=== PATIENT | female | born 1945 | race Caucasian/White ===

== ENCOUNTER 2017-08-28 15:42 | Inpatient (IN) | payer BC, OTHER ==
[~2017-08-28] VITALS: Ht 162.6 cm; Wt 59.0 kg
--- NOTE | 2017-08-28 16:19 | NUR ---
Pt refused xray, dr mariano aware.
--- NOTE | 2017-08-28 16:45 | NUR ---
Pt not candidate for MRSA, belonging list completed.
--- NOTE | 2017-08-28 17:03 | NUR ---
SPOKE WITH DR STAHL, NOTIFIED OF ADMISSION. STATES WILL RECONCILE MEDS LATER.
[2017-08-28] MEDS ORDERED: ACETAMINOPHEN 325 MG TABLET PO PRN (17:15)
[2017-08-28] MEDS ORDERED: MAG HYDROX/AL HYDROX/SIMETH 30 ML LIQUID UDC PO PRN (17:15)
[2017-08-28] MEDS ORDERED: MAGNESIUM HYDROXIDE 30 ML LIQUID UDC PO PRN (17:15)
[2017-08-28 18:26] VITALS: BP 134/90
--- NOTE | 2017-08-28 18:51 | NUR ---
1700 ADMIT TO [facility] A 72 YR. OLD FEMALE FROM , PLACED ON 5150 FOR DANGER TO SELF . PATIENT STATED SI AND BEEN DEPRESSED OVER 6 MONS. DUE TO THE OF HER TWIN SISTER . PATIENT IA ANGRY TO BE ADMITTED HER IN U. DR. MONROY AND DR. ALFARO NOTIFIED OF THE ADMIOSSION.
[2017-08-28 20:00] VITALS: BP 163/103
[2017-08-29] MEDS: LORAZEPAM 1 MG TABLET PO PRN ×2 (03:08→20:55)
[2017-08-29 07:30] VITALS: BP 145/89
[2017-08-29 07:39] LABS: BASOPHILS % (AUTO) 0.7 % (0.0-2.0); EOSINOPHILS # (AUTO) 0.1 K/uL (0.0-0.7); HEMATOCRIT 46.5 % (37-47); LYMPHOCYTES # (AUTO) 1.7 K/UL (0.8-4.8); MEAN CORPUSCULAR HEMOGLOBIN 36.8 UUG (27.0-31.0); MEAN CORPUSCULAR HGB CONC 34 g/dL (32.0-37.0); MEAN CORPUSCULAR VOLUME 107.3 FL (81.0-99.0); MONOCYTES # (AUTO) 0.6 K/UL (0.1-1.30); MONOCYTES % (AUTO) 11.2 % (0.0-11.0); NEUTROPHILS # (AUTO) 3.3 K/UL (1.8-8.9); NEUTROPHILS % (AUTO) 58.1 % (38.5-71.5); PLATELET COUNT (AUTO) 181 K/UL (150-450); RED BLOOD CELL COUNT(AUTO) 4.33 MIL/UL (4.2-5.4); WHITE BLOOD COUNT (AUTO) 5.7 K/UL (4.0-11.2)
[2017-08-29 07:56] LABS: THYROID STIMULATING HORMONE 6.585 mIU/mL (0.358-3.740)
[2017-08-29 08:13] LABS: ALANINE AMINOTRANSFERASE 48 U/L (14-59); ALKALINE PHOSPHATASE 73 U/L (50-136); ASPARTATE AMINOTRANSFERASE 64 U/L (15-37); BILIRUBIN,TOTAL 1.4 mg/dL (0.2-1.0); CARBON DIOXIDE 33 mmol/L (21-32); CHLORIDE 99 mmol/L (98-107); CHOLESTEROL 282 mg/dL (<200); CREATININE 0.7 mg/dL (0.6-1.3); GLUCOSE 101 mg/dL (74-106); HDL CHOLESTEROL 93 mg/dL (40-60); MAGNESIUM 1.8 mg/dL (1.8-2.4); PHOSPHOROUS 4.2 mg/dL (2.5-4.9); POTASSIUM 3.7 mmol/L (3.5-5.1); TOTAL PROTEIN, SERUM 7.3 g/dL (6.4-8.2); TRIGLYCERIDES 84 MG/DL (30-150); UREA NITROGEN, BLOOD 10 mg/dL (7-18)
--- NOTE | 2017-08-29 11:30 | NUR ---
PTS SON FROM [place] CALLED TO CHECK ON PT. CARON VERBALLY GAVE ME PERMISSION TO RELEASE INFORMATION TO BOTH OF HER SONS.
[2017-08-29] MEDS ORDERED: CLONIDINE HCL 0.1 MG TABLET PO PRN (14:30)
[2017-08-29 15:00] VITALS: BP 151/95
[2017-08-29] MEDS: MULTIVITAMINS,THERAPEUTIC TABLET PO SCH (15:17)
[2017-08-29] MEDS: THIAMINE HCL 100 MG TABLET PO SCH (15:17)
[2017-08-29] MEDS: FOLIC ACID 1 MG TABLET PO SCH (15:17)
[2017-08-29] MEDS: HYDROCORTISONE 1% CREAM 30 GM TUBE TP SCH (17:49)
[2017-08-29 20:19] VITALS: BP 131/75
[2017-08-30 08:02] VITALS: BP 131/85
[2017-08-30] MEDS: THIAMINE HCL 100 MG TABLET PO SCH (08:47)
[2017-08-30] MEDS: MULTIVITAMINS,THERAPEUTIC TABLET PO SCH (08:47)
[2017-08-30] MEDS: SERTRALINE HCL 50 MG TABLET PO SCH (08:48)
[2017-08-30] MEDS: FOLIC ACID 1 MG TABLET PO SCH (08:48)
[2017-08-30] MEDS: HYDROCORTISONE 1% CREAM 30 GM TUBE TP SCH ×3 (08:49→16:36)
--- NOTE | 2017-08-30 11:34 | NUR ---
Initial Discharge Instructions: Pt is currently homeless and living in her car. Address provided on facesheet is her 's [facility] [[address] [place] [id number]; ]. Per pt, she would like to return to her car so that she can drive to [place] to be with her son and ex-. Spoke with pt's son, Abelardo ([phone]) who expressed concern of pt's ability to drive. SW will speak with pt, family, and MD regarding appropriate discharge plans. SW will form a safe and proper discharge.
[2017-08-30 15:20] VITALS: BP 149/83
[2017-08-30 20:06] VITALS: BP 145/82
[2017-08-30] MEDS: TEMAZEPAM 7.5 MG CAPSULE PO PRN (20:10)
[2017-08-31 07:30] VITALS: BP 130/85
[2017-08-31] MEDS: FOLIC ACID 1 MG TABLET PO SCH (08:04)
[2017-08-31] MEDS: HYDROCORTISONE 1% CREAM 30 GM TUBE TP SCH ×2 (08:05→16:27)
[2017-08-31] MEDS: THIAMINE HCL 100 MG TABLET PO SCH (08:05)
[2017-08-31] MEDS: MULTIVITAMINS,THERAPEUTIC TABLET PO SCH (08:05)
[2017-08-31] MEDS: SERTRALINE HCL 50 MG TABLET PO SCH (08:05)
[2017-08-31 08:21] LABS: ALANINE AMINOTRANSFERASE 41 U/L (14-59); ALKALINE PHOSPHATASE 64 U/L (50-136); ASPARTATE AMINOTRANSFERASE 54 U/L (15-37); BASOPHILS % (AUTO) 0.8 % (0.0-2.0); BILIRUBIN,TOTAL 1.1 mg/dL (0.2-1.0); CARBON DIOXIDE 28 mmol/L (21-32); CHLORIDE 101 mmol/L (98-107); CREATININE 0.5 mg/dL (0.6-1.3); EOSINOPHILS # (AUTO) 0.1 K/uL (0.0-0.7); EOSINOPHILS % (AUTO) 1.5 % (0.0-7.0); GLUCOSE 111 mg/dL (74-106); HEMATOCRIT 41.4 % (37-47); HEMOGLOBIN 14.6 G/DL (12.0-16.0); LYMPHOCYTES # (AUTO) 1.5 K/UL (0.8-4.8); LYMPHOCYTES % (AUTO) 25.4 % (20.5-51.5); MAGNESIUM 1.8 mg/dL (1.8-2.4); MEAN CORPUSCULAR HEMOGLOBIN 37.6 UUG (27.0-31.0); MEAN CORPUSCULAR HGB CONC 35 g/dL (32.0-37.0); MEAN CORPUSCULAR VOLUME 106.9 FL (81.0-99.0); MONOCYTES # (AUTO) 0.7 K/UL (0.1-1.30); MONOCYTES % (AUTO) 12.8 % (0.0-11.0); NEUTROPHILS # (AUTO) 3.5 K/UL (1.8-8.9); NEUTROPHILS % (AUTO) 59.5 % (38.5-71.5); PLATELET COUNT (AUTO) 152 K/UL (150-450); POTASSIUM 3.7 mmol/L (3.5-5.1); RED BLOOD CELL COUNT(AUTO) 3.88 MIL/UL (4.2-5.4); TOTAL PROTEIN, SERUM 6.4 g/dL (6.4-8.2); UREA NITROGEN, BLOOD 10 mg/dL (7-18); WHITE BLOOD COUNT (AUTO) 5.8 K/UL (4.0-11.2)
[2017-08-31] MEDS: AMLODIPINE 5 MG TABLET PO SCH (13:42)
[2017-08-31] MEDS: LORAZEPAM 1 MG TABLET PO PRN (15:11)
[2017-08-31 16:41] VITALS: BP 135/77
[2017-08-31 20:21] VITALS: BP 130/80
[2017-09-01 07:30] VITALS: BP 121/74
[2017-09-01] MEDS: FOLIC ACID 1 MG TABLET PO SCH (08:54)
[2017-09-01] MEDS: HYDROCORTISONE 1% CREAM 30 GM TUBE TP SCH ×2 (08:55→16:04)
[2017-09-01] MEDS: SERTRALINE HCL 50 MG TABLET PO SCH (08:55)
[2017-09-01] MEDS: AMLODIPINE 5 MG TABLET PO SCH (08:55)
[2017-09-01] MEDS: LORAZEPAM 1 MG TABLET PO PRN (08:55)
[2017-09-01] MEDS: MULTIVITAMINS,THERAPEUTIC TABLET PO SCH (08:55)
[2017-09-01] MEDS: THIAMINE HCL 100 MG TABLET PO SCH (09:31)
[2017-09-01 16:37] VITALS: BP 112/66
[2017-09-01] MEDS: TEMAZEPAM 7.5 MG CAPSULE PO PRN (20:08)
[2017-09-01 20:13] VITALS: BP 134/81
[2017-09-02 07:30] VITALS: BP 126/73
[2017-09-02] MEDS: SERTRALINE HCL 50 MG TABLET PO SCH (08:11)
[2017-09-02] MEDS: AMLODIPINE 5 MG TABLET PO SCH (08:11)
[2017-09-02] MEDS: THIAMINE HCL 100 MG TABLET PO SCH (08:11)
[2017-09-02] MEDS: FOLIC ACID 1 MG TABLET PO SCH (08:11)
[2017-09-02] MEDS: MULTIVITAMINS,THERAPEUTIC TABLET PO SCH (08:11)
[2017-09-02] MEDS: HYDROCORTISONE 1% CREAM 30 GM TUBE TP SCH ×2 (08:12→17:30)
[2017-09-02] MEDS: LORAZEPAM 1 MG TABLET PO PRN (10:16)
--- NOTE | 2017-09-02 12:25 | NUR ---
UR Note: MC attempted to call [facility] [employer] (Alondra; [phone]). Left voice message. MC will follow up. Addendum: 09/02/17 at 1607 by BRIA BENTLEY At 0845, spoke with Stephanie at [facility] who stated pt's case has not been assigned a bottle caser yet. MC will follow-up.
[2017-09-02 16:47] VITALS: BP 126/73
[2017-09-02 20:28] VITALS: BP 116/64
--- NOTE | 2017-09-03 07:30 | NUR ---
Ambulating in the hallway. Pleasant, asking about discharge
[2017-09-03 07:47] VITALS: BP 130/13
[2017-09-03] MEDS: FOLIC ACID 1 MG TABLET PO SCH (08:12)
[2017-09-03 08:13] VITALS: BP 130/73
[2017-09-03] MEDS: HYDROCORTISONE 1% CREAM 30 GM TUBE TP SCH (08:13)
[2017-09-03] MEDS: AMLODIPINE 5 MG TABLET PO SCH (08:13)
[2017-09-03] MEDS: MULTIVITAMINS,THERAPEUTIC TABLET PO SCH (08:13)
[2017-09-03] MEDS: THIAMINE HCL 100 MG TABLET PO SCH (08:13)
[2017-09-03] MEDS: SERTRALINE HCL 50 MG TABLET PO SCH (08:13)
[2017-09-03] MEDS: LORAZEPAM 1 MG TABLET PO PRN (08:28)
--- NOTE | 2017-09-03 08:40 | NUR ---
Compliant with taking of medications. Anxious about discharge,keeps on asking when. Redirected and agreed to take Ativan PRN
--- NOTE | 2017-09-03 10:45 | NUR ---
UR Note: Spoke with Bety at [facility] ([phone]) who stated [facility] is not providing wind turbine mechanical engineer for this case. Per Bety, manager rn case is through [facility]. Spoke with Shaista at [facility] ([phone]) who is aware of pt's d/c today and will be providing pt with outpatient psych and medical referrals. SW waiting for return call for referrals. SW will follow-up.
--- NOTE | 2017-09-03 11:15 | NUR ---
DC Note: Patient will be discharged to [facility] ([facility] [[address] [place] [address]; ] via taxi today between 1:00 and 3:00pm. Spoke with Ana at the facility who states that she is ready to accept the patient today. Patients sonAbelardo is aware and agreeable with discharge plans. Patient is aware and agreeable with discharge plans. Patient was provided with referrals for substance and alcohol abuse including: [facility] , [facility] , and [facility] . Addendum: 09/03/17 at 1401 by BRIA BENTLEY Patient will follow-up with her primary care physician Dr. White ([address] [place] [address]; ) on September 12, 2017 at 2:20pm. Pt was given referrals to [facility] ([address], [place] [address]) for outpatient psychiatric care. Spoke with Shaista at [facility] who stated she is waiting for authorization for psychiatrist referral and will call pt when referral is authorized. Pt has been assigned outpatient bilingual case manager Joselyn Arredondo ([phone]) by [facility].
--- NOTE | 2017-09-03 15:45 | NUR ---
With discharge order to home, arranged with [facility] ([facility]). DC instructions given to patient, verbalized understanding. Belongings and valuables returned to patient. Went home per taxi with voucher in fair condition, not in distress.
== END 2017-09-03 16:00 | DRG 885 ==
LOC: ER 15:45 → GPS 16:32
PROVIDERS: ADMIT Psychiatry & Neurology Psychosomatic Medicine; ATTEND Internal Medicine
DX: F33.2 Major depressive disorder, recurrent severe without psychotic features (principal); E88.09 Other disorders of plasma-protein metabolism, not elsewhere classified; R45.851 Suicidal ideations; E03.9 Hypothyroidism, unspecified; E78.5 Hyperlipidemia, unspecified; I10 Essential (primary) hypertension; Z59.0 Homelessness; E80.6 Other disorders of bilirubin metabolism; R74.0 Nonspecific elevation of levels of transaminase and lactic acid dehydrogenase [LDH]; G89.29 Other chronic pain; F41.9 Anxiety disorder, unspecified; R73.9 Hyperglycemia, unspecified; L20.9 Atopic dermatitis, unspecified; Z72.89 Other problems related to lifestyle
CPT/HCPCS: 36415; 83735; 84100; 84443; 85025; A4663